=== PATIENT | female | born 1995 | race Caucasian/White ===

== ENCOUNTER 2019-07-26 08:15 | Inpatient (IN) | payer OTHER ==
--- NOTE | 2019-07-26 08:29 | BHS.RME ---
Substance Use & Tx History - Substance Use History Opiates (Other) Substance amount: percocet 10 mg Frequency of use: Daily Substance route: Oral Date of Last Use: 07/25/19 Benzodiazepines Substance amount: xanax 2mg 2 tabs Frequency of use: Daily Substance route: Oral Date of Last Use: 07/24/19 Physical/Psych/Mental Status - Behavior General Behavior: Increased activity (restlessness, agitation) Eye Contact: Normal - Cooperativeness Cooperativeness: Cooperative - Thinking Thought Processes: Tight, Logical, Goal Directed - Physical Health Problems Is patient presently having any pain?: No Does patient presently have any injuries (include location): No Does patient currently have a fever: No Is patient : No COWS - Scale Resting Pulse: 0= [place] 80 or Below (not yet in severe withdrawals due to taking a percocet at 7pm last night) Sweatin= Chills/Flushing Pupil Size: 1= Pupils >than Normal Bone or Joint Aches: 2= Severe Diffuse Aches Runny Nose/ Eye Tearin= Nasal Congestion GI Upset > 30mins: 1= Stomach Cramp Tremor Observation: 1= Tremor [place], Not Seen Yawning Observation: 1= 1-2x During Session Anxiety or Irritability: 4=Extreme Anxiety Goose Flesh Skin: 0=Smooth Skin
[2019-07-26 09:06] VITALS: BMI 24.4
--- NOTE | 2019-07-26 09:27 | HP ---
COWS - Scale Resting Pulse: 0= [place] 80 or Below (not yet in severe withdrawals due to taking a percocet at 7pm last night) Sweatin= Chills/Flushing Pupil Size: 1= Pupils >than Normal Bone or Joint Aches: 2= Severe Diffuse Aches Runny Nose/ Eye Tearin= Nasal Congestion GI Upset > 30mins: 1= Stomach Cramp Tremor Observation: 1= Tremor [place], Not Seen Yawning Observation: 1= 1-2x During Session Anxiety or Irritability: 4=Extreme Anxiety Goose Flesh Skin: 0=Smooth Skin CIWA Score - Admission Criteria OASAS Guidelines: Admission for Medically Managed Detox: Requires at least one of the followin. CIWA greater than 12 2. Seizures within the past 24 hours 3. Delirium tremens within the past 24 hours 4. Hallucinations within the past 24 hours 5. Acute intervention needed for co occurring medical disorder 6. Acute intervention needed for co occurring psychiatric disorder 7. Severe withdrawal that cannot be handled at a lower level of care (continued vomiting, continued diarrhea, abnormal vital signs) requiring intravenous medication and/or fluids 8. Admitting History and Physical - Admission Chief Complaint: "I want to get clean and I want to see a future for myself" History of Present Illness: 23 year old female with history of sedative dependence and oral opioid dependence for 1.5 years. She has never been in treatment but saw a good friend of overdose of the same substances she's been using. XanaX: 2-3 tabs daily of 2 mg started age 22 and last took it 2 days ago. Percocet: 8 tabs of 10 mg daily for 1.5 years started age 21 and last used yesterday evening at 7 pm. No overdose. Marijuana: Sporadic, last used last night PMH: None Psurg: Budd-Chiari Malformation surgery 2014 Psych: Anxiety and Depression (treated in past with prozac and seroquel - stopped 4 years ago) She is domiciled but has poor support systems. She denies having suicidal ideations or plans at this time. She attempted suicide 5 times and has been hospitalized 5 times. She is seeking help and really wants to stop abusing these drugs. She is also homeless and father kicked her out. So there are poor support systems for her and poor recovery environment. History Source: Patient Limitations to Obtaining History: No Limitations - Past Medical History ...LMP: 07/23/19 ...: No - Past Surgical History Additional Past Surgical History: Budd-Chiari Malformation Corrective surgery 2014 - Smoking History Smoking history: Current some day smoker Have you smoked in the past 12 months: Yes Aproximately how many cigarettes per day: 1 - Alcohol/Substance Use Hx Alcohol Use: No History of Substance Use: reports: Prescription, Tranquilizers Date of Last Use: 07/25/19 - Social History Usual Living Arrangement: Yes: Alone Do you think of yourself as: Straight/Heterosexual ADL: Independent Occupation: unemployed History of Recent Travel: No Admission ROS [facility] Allergies/Adverse Reactions: Allergies Allergy/AdvReac Type Severity Reaction Status Date / Time No Known Allergies Allergy Verified 07/26/19 08:57 Exam Limitations: No Limitations - Ebola screening Have you traveled outside of the country in the last 21 days: No Have you had contact with anyone from an Ebola affected area: No Have you been sick,other than usual withdrawal symptoms: No Do you have a fever: No - Review of Systems Constitutional: No Symptoms Reported EENT: reports: No Symptoms Reported Respiratory: reports: No Symptoms reported Cardiac: reports: No Symptoms Reported GI: reports: No Symptoms Reported : reports: No Symptoms Reported Musculoskeletal: reports: No Symptoms Reported Integumentary: reports: No Symptoms Reported Neuro: reports: No Symptoms reported Endocrine: reports: No Symptoms Reported Hematology: reports: No Symptoms Reported Psychiatric: reports: Judgement Intact, Mood/Affect Appropiate, Orientated x3, Agitated, Anxious, Depressed Other Systems: Reviewed and Negative Patient History - Patient Medical History Hx Anemia: No Hx Asthma: No Hx Chronic Obstructive Pulmonary Disease (COPD): No Hx Cardiac Disorders: No Hx Hypertension: No Hx Seizures: No Hx Diabetes: No Hx Gastrointestinal Disorders: No Hx Genitourinary Disorders: No Hx Sexually Transmitted Disorders: No Hx Renal Disease (ESRD): No Hx Depression: Yes Hx Suicide Attempt: No Hx Schizophrenia: No - Patient Surgical History Past Surgical History: No Hx Neurologic Surgery: Yes (budd chiari malformation) Hx Cataract Extraction: No Hx Cardiac Surgery: No Hx Lung Surgery: No Hx Breast Surgery: No Hx Breast Biopsy: No Hx Abdominal Surgery: No Hx Appendectomy: No Hx Cholecystectomy: No Hx Genitourinary Surgery: No Hx Section: No Hx Orthopedic Surgery: No Anesthesia Reaction: No - PPD History Previous Implant?: No Documented Results: Negative w/o proof Implanted On Prior [facility] Admission?: Yes PPD to be Administered?: Yes - Reproductive History Last Menstrual Period: 07/23/19 Patient : No - Smoking Cessation Smoking history: Current some day smoker Have you smoked in the past 12 months: Yes Aproximately how many cigarettes per day: 1 Cigars Per Day: 0 Hx Chewing Tobacco Use: No Initiated information on smoking cessation: Yes 'Breaking Loose' booklet given: 07/26/19 - Substances abused Alprazolam (Xanax) Other (specify): 2mg Substance route: Oral Amount used: 3 pills Age of first use: 22 Date of last use: 07/24/19 Other Other (specify): percocet 10mg Substance route: Oral Frequency: Daily Amount used: 7-8 pills Age of first use: 20 Date of last use: 07/24/19 Marijuana/Hashish Substance route: Smoking Frequency: 1-3 times last 30 days Amount used: 1 blunt Age of first use: 21 Date of last use: 07/25/19 Admission Physical Exam S - Vital Signs Vital Signs: Vital Signs - 24 hr 07/26/19 08:58 Temperature 97.8 F Pulse Rate 61 Respiratory 18 Rate Blood Pressure 141/96 - Physical General Appearance: Yes: Nourished, Appropriately Dressed, Moderate Distress, Tremorous, Irritable, Anxious HEENTM: Yes: EOMI, Hearing grossly Normal, Normal ENT Inspection, Normocephalic, Normal Voice, LATRICE, Pharynx Normal, Tm's normal, Other (scar back of neck) Respiratory: Yes: Chest Non-Tender, Lungs Clear, Normal Breath Sounds, No Respiratory Distress, No Accessory Muscle Use Neck: Yes: No masses,lesions,Nodules, Supple, Trachea in good position Breast: Yes: Breast Exam Deferred Cardiology: Yes: Regular Rhythm, Regular Rate, S1, S2 Abdominal: Yes: Normal Bowel Sounds, Non Tender, Flat, Soft Genitourinary: Yes: Within Normal Limits Back: Yes: Normal Inspection Musculoskeletal: Yes: full range of Motion, Gait Steady Extremities: Yes: Normal Capillary Refill, Normal Inspection, Normal Range of Motion, Non-Tender Neurological: Yes: automatic lathe setter II-XII NML intact, Fully Oriented, Alert, Motor Strength 5/5, Normal Mood/Affect, Normal Response Integumentary: Yes: Normal Color, Warm Lymphatic: Yes: Within Normal Limits - Diagnostic (1) Percocet use disorder, severe, dependence Current Visit: Yes Status: Acute (2) Sedative dependence with current use Current Visit: Yes Status: Acute (3) Depression Current Visit: Yes Status: Acute (4) Budd-Chiari syndrome Current Visit: Yes Status: Acute Screened but not Admitted - Documentation of Visit Screened but not Admitted: No Breathalyzer - Breathalyzer Breathalyzer: 0 Urine Drug Screen - Test Device Lot number: [id number] Expiration date: 04/20/21 - Control Is test valid?: Yes - Results Drug screen NEGATIVE: No Urine drug screen results: THC-Marijuana, OXY-Oxycodone, BZO-Benzodiazepines Inpatient Rehab Admission - Rehab Decision to Admit Inpatient rehab admission?: No
[2019-07-26] MEDS ORDERED: IBUPROFEN 400 MG TABLET (FP) PO PRN (09:36)
[2019-07-26] MEDS ORDERED: NICOTINE POLACRILEX 2 MG GUM BUC PRN (09:36)
[2019-07-26] MEDS ORDERED: MAGNESIUM HYDROX 2400MG/30ML ORAL SUSPENSION 30 ML CUP PO PRN (09:36)
[2019-07-26] MEDS ORDERED: cloNIDine HCL 0.1 MG TABLET PO PRN (09:36)
[2019-07-26] MEDS ORDERED: ACETAMINOPHEN 325 MG TABLET (FP) PO PRN ×2 (09:36)
[2019-07-26] MEDS ORDERED: MENTHOL/PHENOL 1 EACH UD MM PRN (09:36)
[2019-07-26] MEDS ORDERED: MAG HYDROX/AL HYDROX/SIMETH 30 ML UNIT-DOSE CUP PO PRN (09:36)
[2019-07-26] MEDS ORDERED: METHOCARBAMOL 500 MG TABLET PO PRN (09:36)
[2019-07-26] MEDS ORDERED: MAGNESIUM CITRATE 300 ML BOTTLE PO PRN (09:36)
[2019-07-26] MEDS ORDERED: hydrOXYzine PAMOATE 25 MG CAPSULE (FP) PO SCH (10:00)
[2019-07-26] MEDS ORDERED: METHADONE HCL 10 MG TABLET (FOR DETOX USE ONLY) PO ONE (10:00)
[2019-07-26] MEDS ORDERED: ONDANSETRON *ODT* 4 MG TABLET SL ONE (10:05)
[2019-07-26] MEDS: NICOTINE 7 MG/24 HOURS TOPICAL PATCH TD SCH (10:25)
[2019-07-26] MEDS: PRENATAL VITAMINS W/ FOLIC ACID TABLET (FP) PO SCH (10:26)
--- NOTE | 2019-07-26 10:56 | EKG ---
Test Reason : Blood Pressure : / mmHG Vent. Rate : 065 BPM Atrial Rate : 065 BPM P-R Int : 128 ms QRS Dur : 086 ms QT Int : 394 ms P-R-T Axes : 038 025 031 degrees QTc Int : 409 ms NORMAL SINUS RHYTHM WITH SINUS ARRHYTHMIA NORMAL ECG NO PREVIOUS ECGS AVAILABLE Confirmed by MATIAS PANDEY MD ([id number]) on 07/26/2019 10:56:36 AM Referred By: Confirmed By:MATIAS PANDEY MD
[2019-07-26] MEDS: LORazepam 2 MG TABLET PO SCH ×3 (11:16→22:00)
[2019-07-26] MEDS ORDERED: BISMUTH SUBSALICYLATE 262 MG/15 ML BTL PO PRN (12:35)
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
[2019-07-26 15:26] LABS: HEMATOCRIT 40.8 % (32.4-45.2); HEMOGLOBIN 13.9 GM/dL (10.7-15.3); MCH 33.8 pg (25.7-33.7); MCHC 33.9 g/dl (32.0-36.0); MEAN CELL VOLUME 99.7 fl (80-96); MEAN PLT VOLUME 8.5 fl (7.5-11.1); PLATELET COUNT 284 K/MM3 (134-434); RBC 4.09 M/mm3 (3.60-5.2); RDW 13.5 % (11.6-15.6); WHITE BLOOD COUNT 9.8 K/mm3 (4.0-10.0)
[2019-07-26 15:56] LABS: ALBUMIN 4.1 g/dl (3.4-5.0); BILIRUBIN,TOTAL 0.5 mg/dL (0.2-1); BLOOD UREA NITROGEN 6.7 mg/dL (7-18); CALCIUM 9.4 mg/dL (8.5-10.1); CREATININE 0.6 mg/dL (0.55-1.3); POTASSIUM 3.9 mmol/L (3.5-5.1); TOT PROT 7.3 g/dl (6.4-8.2)
[2019-07-26] MEDS: LORazepam 1 MG TABLET PO PRN (20:05)
[2019-07-26] MEDS: THIAMINE HCL 100 MG TABLET (FP) PO SCH (21:56)
[2019-07-26] MEDS: SUVOREXANT 10 MG TABLET PO PRN (21:56)
[2019-07-26] MEDS ORDERED: MELATONIN 5 MG TABLETS PO SCH (22:00)
[2019-07-27] MEDS: LORazepam 2 MG TABLET PO SCH ×4 (05:35→22:06)
[2019-07-27] MEDS ORDERED: METHADONE HCL 5 MG TABLET (FOR DETOX USE ONLY) PO ONE (10:00)
[2019-07-27] MEDS: NICOTINE 7 MG/24 HOURS TOPICAL PATCH TD SCH (10:28)
[2019-07-27] MEDS: PRENATAL VITAMINS W/ FOLIC ACID TABLET (FP) PO SCH (10:28)
[2019-07-27] MEDS: LORazepam 1 MG TABLET PO PRN ×2 (13:14→19:42)
--- NOTE | 2019-07-27 14:39 | PN ---
S CIWA - CIWA Score Nausea/Vomitin Muscle Tremors: 2 Anxiety: 2 Agitation: 3 Paroxysmal Sweats: No Perspiration Orientation: 0-Oriented Tacttile Disturbances: 1-Very Mild Itch/Numbness Auditory Disturbances: 0-None Visual Disturbances: 0-None Headache: 2-Mild CIWA-Ar Total Score: 12 BHS COWS - Scale Resting Pulse: 0= [place] 80 or Below Sweatin= No chills or Flushing Restless Observation: 1= Difficult to Sit Still Pupil Size: 1= Pupils >than Normal Bone or Joint Aches: 1= Mild Discomfort Runny Nose/ Eye Tearin= Runny Nose/Eyes GI Upset > 30mins: 1= Stomach Cramp Tremor Observation of Outstretched Hands: 2= Slight Tremor Visible Yawning Observation: 1= 1-2x During Session Anxiety or Irritability: 2=Irritable/Anxious Goose Flesh Skin: 0=Smooth Skin COWS Score: 11 S Progress Note (SOAP) Subjective: alert,irritable,anxious,interrupted sleep,pain in the body and back Objective: 07/27/19 14:37 Vital Signs Temperature 97.5 F L 07/27/19 08:55 Pulse Rate 69 07/27/19 08:55 Respiratory Rate 18 07/27/19 08:55 Blood Pressure 118/72 07/27/19 08:55 O2 Sat by Pulse Oximetry (%) 07/27/19 14:38 Laboratory Last Values WBC 9.8 K/mm3 (4.0-10.0) 07/26/19 09:30 RBC 4.09 M/mm3 (3.60-5.2) 07/26/19 09:30 Hgb 13.9 GM/dL (10.7-15.3) 07/26/19 09:30 Hct 40.8 % (32.4-45.2) 07/26/19 09:30 MCV 99.7 fl (80-96) H 07/26/19 09:30 MCH 33.8 pg (25.7-33.7) H 07/26/19 09:30 MCHC 33.9 g/dl (32.0-36.0) 07/26/19 09:30 RDW 13.5 % (11.6-15.6) 07/26/19 09:30 Plt Count 284 K/MM3 (134-434) 07/26/19 09:30 MPV 8.5 fl (7.5-11.1) 07/26/19 09:30 Sodium 139 mmol/L (136-145) 07/26/19 09:30 Potassium 3.9 mmol/L (3.5-5.1) 07/26/19 09:30 Chloride 104 mmol/L (98-107) 07/26/19 09:30 Carbon Dioxide 30 mmol/L (21-32) 07/26/19 09:30 Anion Gap 5 MMOL/L (8-16) L 07/26/19 09:30 BUN 6.7 mg/dL (7-18) L 07/26/19 09:30 Creatinine 0.6 mg/dL (0.55-1.3) 07/26/19 09:30 Est GFR (CKD-EPI)AfAm 149.95 07/26/19 09:30 Est GFR (CKD-EPI)NonAf 129.38 07/26/19 09:30 Random Glucose 97 mg/dL (74-106) 07/26/19 09:30 Calcium 9.4 mg/dL (8.5-10.1) 07/26/19 09:30 Total Bilirubin 0.5 mg/dL (0.2-1) 07/26/19 09:30 AST 14 U/L (15-37) L 07/26/19 09:30 ALT 14 U/L (13-61) 07/26/19 09:30 Alkaline Phosphatase 84 U/L (45-117) 07/26/19 09:30 Total Protein 7.3 g/dl (6.4-8.2) 07/26/19 09:30 Albumin 4.1 g/dl (3.4-5.0) 07/26/19 09:30 RPR Titer Nonreactive (NONREACTIVE) 07/26/19 09:30 Assessment: 07/27/19 14:38 withdrawal symptom Plan: continue detox methadone and ativan regimen
[2019-07-27] MEDS ORDERED: TRIMETHOBENZAMIDE HCL 200MG/2ML INJ IM ONE (18:22)
[2019-07-27] MEDS ORDERED: PROMETHAZINE HCL 25 MG TABLET PO PRN (22:00)
[2019-07-27] MEDS: SUVOREXANT 10 MG TABLET PO PRN (22:06)
[2019-07-27] MEDS: THIAMINE HCL 100 MG TABLET (FP) PO SCH (22:06)
[2019-07-28] MEDS: LORazepam 1 MG TABLET PO SCH ×3 (05:45→17:45)
[2019-07-28] MEDS: LORazepam 1 MG TABLET PO PRN ×2 (08:52→13:22)
--- NOTE | 2019-07-28 09:27 | PN ---
[facility] Progress Note Note: Patient requested to talk to greeting card writer this morning. Reports that she is trying to talk to staff but no one seems to have time for her. she said that she is feeling alone and started to feel depressed. She claims that she only met a weekend counselor yesterday and has not met any counselor before that since her admission. She is willing to resume Prozac which she responded well to in the past. She was reminded of the length of time for medication to be effective and medication adverse-effect were reviewed
[2019-07-28] MEDS ORDERED: METHADONE HCL 10 MG TABLET (FOR DETOX USE ONLY) PO ONE (10:00)
[2019-07-28] MEDS ORDERED: FLUoxetine HCL 20 MG CAPSULE PO SCH (10:00)
[2019-07-28] MEDS: NICOTINE 7 MG/24 HOURS TOPICAL PATCH TD SCH (10:43)
[2019-07-28] MEDS: PRENATAL VITAMINS W/ FOLIC ACID TABLET (FP) PO SCH (10:43)
--- NOTE | 2019-07-28 12:59 | PN ---
[facility] CIWA - CIWA Score Nausea/Vomitin-No Nausea/No Vomiting Muscle Tremors: 3 Anxiety: 2 Agitation: 2 Paroxysmal Sweats: 2 Orientation: 0-Oriented Tacttile Disturbances: 0-None Auditory Disturbances: 0-None Visual Disturbances: 0-None Headache: 0-None Present CIWA-Ar Total Score: 9 BHS COWS - Scale Resting Pulse: 1= [place] 81-100 Sweatin= Chills/Flushing Restless Observation: 1= Difficult to Sit Still Pupil Size: 0= Normal to Room Light Bone or Joint Aches: 1= Mild Discomfort Runny Nose/ Eye Tearin= Nasal Congestion GI Upset > 30mins: 0= None Tremor Observation of Outstretched Hands: 1= Tremor [place], Not Seen Yawning Observation: 1= 1-2x During Session Anxiety or Irritability: 2=Irritable/Anxious Goose Flesh Skin: 0=Smooth Skin COWS Score: 9 [facility] Progress Note (SOAP) Subjective: sweats shakes teary eyes poor appetite interrupted sleep Objective: 07/28/19 12:58 Vital Signs Temperature 97.2 F L 07/28/19 08:46 Pulse Rate 87 07/28/19 08:46 Respiratory Rate 18 07/28/19 08:46 Blood Pressure 120/92 07/28/19 08:46 O2 Sat by Pulse Oximetry (%) Laboratory Tests 07/26/19 07/26/19 07/26/19 09:30 09:30 09:30 WBC 9.8 RBC 4.09 Hgb 13.9 Hct 40.8 MCV 99.7 H MCH 33.8 H MCHC 33.9 RDW 13.5 Plt Count 284 MPV 8.5 Sodium 139 Potassium 3.9 Chloride 104 Carbon Dioxide 30 Anion Gap 5 L BUN 6.7 L Creatinine 0.6 Est GFR (CKD-EPI)AfAm 149.95 Est GFR (CKD-EPI)NonAf 129.38 Random Glucose 97 Calcium 9.4 Total Bilirubin 0.5 AST 14 L ALT 14 Alkaline Phosphatase 84 Total Protein 7.3 Albumin 4.1 RPR Titer Nonreactive labs noted aaox3 ambulating no acute distress Assessment: 07/28/19 12:59 withdrawals Plan: continue detox increase fluids ensure bid
[2019-07-28 14:59] VITALS: BP 126/86; PULSE 74; TEMP 99
[2019-07-28] MEDS ORDERED: ONDANSETRON *ODT* 4 MG TABLET SL PRN (15:46)
--- NOTE | 2019-07-28 17:39 | PN ---
[facility] Progress Note Note: Patient states wants to leave and stay w/ friend. States was shaking earlier because of anxiety. Received a dose of Ativan prior to discharge. Patient is alert and oriented w/ steady gait. No w/drawal symptoms noted at this time. States notes hair loss. Patient denies nicotine use. Enlarged thyroid noted w/o impaired breathing. Discussed the potential relationship of thyroid problems w/ current symptoms. Discussed the importance of f/u w/a PCP to evaluate and treat. Reviewed loss of tolerance and risks for overdose. Reviewed Narcan for overdose reversal. Verbalized an understanding and states will review w/ friend. Prescription sent to [facility] per patient's request.
--- NOTE | 2019-07-28 17:40 | DS ---
[facility] Detox Discharge Summary Admission Date: 07/26/19 Discharge Date: 07/28/19 - History Present History: Opioid Dependence (Percocet), Sedative Dependence (Xanax) Additional Comments: Admitted seeking Xanax and percocet detox Pertinent Past History: Hx: Budd-Chiari syndrome -resolved. - Physical Exam Results Vital Signs: Vital Signs Temperature 99.0 F 07/28/19 13:15 Pulse Rate 74 07/28/19 13:15 Respiratory Rate 20 07/28/19 13:15 Blood Pressure 126/86 07/28/19 13:15 O2 Sat by Pulse Oximetry (%) Pertinent Admission Physical Exam Findings: Admitted w/ anxiolytic and opioid w/drawal symptoms. Noted to have enlarged thyroid w/o respiratory or swallowing impairment and encouraged f/u. Laboratory Last Values WBC 9.8 K/mm3 (4.0-10.0) 07/26/19 09:30 RBC 4.09 M/mm3 (3.60-5.2) 07/26/19 09:30 Hgb 13.9 GM/dL (10.7-15.3) 07/26/19 09:30 Hct 40.8 % (32.4-45.2) 07/26/19 09:30 MCV 99.7 fl (80-96) H 07/26/19 09:30 MCH 33.8 pg (25.7-33.7) H 07/26/19 09:30 MCHC 33.9 g/dl (32.0-36.0) 07/26/19 09:30 RDW 13.5 % (11.6-15.6) 07/26/19 09:30 Plt Count 284 K/MM3 (134-434) 07/26/19 09:30 MPV 8.5 fl (7.5-11.1) 07/26/19 09:30 Sodium 139 mmol/L (136-145) 07/26/19 09:30 Potassium 3.9 mmol/L (3.5-5.1) 07/26/19 09:30 Chloride 104 mmol/L (98-107) 07/26/19 09:30 Carbon Dioxide 30 mmol/L (21-32) 07/26/19 09:30 Anion Gap 5 MMOL/L (8-16) L 07/26/19 09:30 BUN 6.7 mg/dL (7-18) L 07/26/19 09:30 Creatinine 0.6 mg/dL (0.55-1.3) 07/26/19 09:30 Est GFR (CKD-EPI)AfAm 149.95 07/26/19 09:30 Est GFR (CKD-EPI)NonAf 129.38 07/26/19 09:30 Random Glucose 97 mg/dL (74-106) 07/26/19 09:30 Calcium 9.4 mg/dL (8.5-10.1) 07/26/19 09:30 Total Bilirubin 0.5 mg/dL (0.2-1) 07/26/19 09:30 AST 14 U/L (15-37) L 07/26/19 09:30 ALT 14 U/L (13-61) 07/26/19 09:30 Alkaline Phosphatase 84 U/L (45-117) 07/26/19 09:30 Total Protein 7.3 g/dl (6.4-8.2) 07/26/19 09:30 Albumin 4.1 g/dl (3.4-5.0) 07/26/19 09:30 RPR Titer Nonreactive (NONREACTIVE) 07/26/19 09:30 Labs reviewed. - Treatment Hospital Course: Detox Protocol Followed, Detoxed Safely, Responded well, Discharged Condition Good - Medication Discharge Medications: Ambulatory Orders Naloxone HCl [Narcan] 4 mg NS ONCE PRN #2 spray 07/28/19 - Diagnosis (1) Percocet use disorder, severe, dependence Status: Acute (2) Sedative dependence with current use Status: Acute (3) Enlarged thyroid Status: Chronic - AMA Did Patient Leave Against Medical Advice: No
[2019-07-28] MEDS ORDERED: NALOXONE (NARCAN) HCL 4 MG/0.1 ML SPRAY NS PRN (17:41)
[2019-07-29] MEDS ORDERED: LORazepam 0.5 MG TABLET PO PRN
[2019-07-29] MEDS ORDERED: LORazepam 0.5 MG TABLET PO SCH (05:00)
[2019-07-29] MEDS ORDERED: METHADONE HCL 5 MG TABLET (FOR DETOX USE ONLY) PO ONE (06:00)
[2019-07-30] MEDS ORDERED: LORazepam 0.5 MG TABLET PO ONE (05:00)
== END 2019-07-28 17:30 | disposition home or self-care (01) | DRG 773 ==
LOC: YASAS 08:15 → Y6N 09:57
PROVIDERS: ADMIT Allergy & Immunology; ATTEND Allergy & Immunology
PROC: HZ2ZZZZ Detoxification Services for Substance Abuse Treatment (ICD-10-PCS; principal; 2019-07-26)
DX: F11.23 Opioid dependence with withdrawal (principal); F13.230 Sedative, hypnotic or anxiolytic dependence with withdrawal, uncomplicated; F12.20 Cannabis dependence, uncomplicated; F17.210 Nicotine dependence, cigarettes, uncomplicated; F39 Unspecified mood [affective] disorder; F19.280 Other psychoactive substance dependence with psychoactive substance-induced anxiety disorder; F19.282 Other psychoactive substance dependence with psychoactive substance-induced sleep disorder; I82.0 Budd-Chiari syndrome; E06.9 Thyroiditis, unspecified; Z59.0 Homelessness
CPT/HCPCS: 36415; 80053; 85027; 86593; 93005; 93010; J0735; Q0162